=== PATIENT | female | born 1985 | race Caucasian/White ===

== ENCOUNTER 2020-11-22 12:03 | Emergency (ER) | payer MEDICARE ==
[2020-11-22 13:21] LABS: HEMOGLOBIN 13.8 gm/dl (12.3-15.3); RED BLOOD COUNT 4.58 M/UL (4.00-5.10); WHITE BLOOD COUNT 7.1 K/UL (4.5-11.0)
[2020-11-22 13:43] LABS: BUN/CREATININE RATIO 10 (0-10)
[2020-11-22] MEDS ORDERED: CYCLOBENZAPRINE10 MG PO (15:38)
[2020-11-22] MEDS ORDERED: MEDROL DOSEPAK 24 MG PO (15:38)
== END 2020-11-22 17:00 | disposition home or self-care (01) ==
LOC: ER1 12:03
PROVIDERS: Physician Assistant
DX: S39.012A Strain of muscle, fascia and tendon of lower back, initial encounter (principal); F17.210 Nicotine dependence, cigarettes, uncomplicated; Z90.710 Acquired absence of both cervix and uterus; Z88.1 Allergy status to other antibiotic agents; Z88.0 Allergy status to penicillin; X58.XXXA Exposure to other specified factors, initial encounter
CPT/HCPCS: 72129; 72132; 72192; 80053; 82550; 82553; 83874; 84484; 85025; 85652; 86140; 87040; 96374; 96375; 99284; J2270; J2405; Q9967